=== PATIENT | male | born 1990 | race Caucasian/White ===

== ENCOUNTER 2016-08-06 04:38 | Inpatient (IN) | payer OTHER ==
[~2016-08-06] VITALS: Ht 177.8 cm; Wt 72.1 kg
[~2016-08-06 04:38] MED LIST: ADDE30CA PO; ALPR1TAB3 PO; GABA-282 PO; NAPR500T2 PO; ZYRT10TA2 PO
[2016-08-06 05:12] LABS: MEAN CORPUSCULAR HEMOGLOBIN 32.8 pg (27.0-33.0); MEAN CORPUSCULAR HGB CONC 35.7 g/dl (32.0-36.5); RED CELL DISTRIBUTION WIDTH 12.9 % (11.5-14.5); WHITE BLOOD COUNT 7.1 K/mm3 (4.0-10.0)
[2016-08-06 05:18] LABS: INR 1.02
[2016-08-06 05:45] LABS: ALBUMIN 4.1 GM/DL (3.2-5.2); ALKALINE PHOSPHATASE 72 U/L (45-117); ALT/SGPT 27 U/L (12-78); ANION GAP 9 MEQ/L (8-16); AST/SGOT 20 U/L (15-37); BILIRUBIN,DIRECT 0.1 MG/DL (0.0-0.2); BILIRUBIN,TOTAL 0.5 MG/DL (0.2-1.0); BLOOD UREA NITROGEN 9 MG/DL (7-18); CALCIUM LEVEL 8.1 MG/DL (8.5-10.1); CARBON DIOXIDE LEVEL 27 MEQ/L (21-32); CHLORIDE LEVEL 105 MEQ/L (98-107); CREATININE FOR GFR 0.74 MG/DL (0.70-1.30); GLOMERULAR FILTRATION RATE > 60.0 (>60); GLUCOSE, FASTING 98 MG/DL (70-105); POTASSIUM SERUM 3.6 MEQ/L (3.5-5.1); SODIUM LEVEL 141 MEQ/L (136-145); TOTAL PROTEIN 7.3 GM/DL (6.4-8.2)
[2016-08-06 05:46] LABS: ALBUMIN/GLOBULIN RATIO 1.28 (1.00-1.93)
[2016-08-06] MEDS ORDERED: D5W IV ONE ×4 (06:30→13:00)
[2016-08-06] MEDS ORDERED: ACETYLCYSTEINE IV ONE ×4 (06:30→13:00)
[2016-08-06] MEDS ORDERED: ONDANSETRON 4MG/2ML VIAL (J2405) IV ONE (07:45)
[2016-08-06] MEDS ORDERED: ACETYLCYSTEINE 0 MG in D5W 500 ML IV ONE (10:15)
[2016-08-06] MEDS ORDERED: ONDANSETRON 4MG/2ML VIAL (J2405) IV PRN (10:15)
[2016-08-06] MEDS ORDERED: ACETYLCYSTEINE 0 MG in D5W 1,000 ML IV ONE (10:15)
[2016-08-06] MEDS ORDERED: GLUCOSE 4 GM CHEW TABLET PO PRN (10:30)
[2016-08-06] MEDS ORDERED: GLUCAGON FOR INJ 1 MG VIAL (J1610) SC PRN (10:30)
[2016-08-06] MEDS ORDERED: DEXTROSE 50% 50 ML SYRINGE IV PRN (10:30)
[2016-08-06 10:45] LABS: METHADONE URINE NEGATIVE (NEGATIVE)
[2016-08-06 11:54] VITALS: BP 142/90
[2016-08-06 12:15] LABS: INR 1.09
[2016-08-06 12:23] LABS: ALBUMIN 3.8 GM/DL (3.2-5.2); ALBUMIN/GLOBULIN RATIO 1.36 (1.00-1.93); BILIRUBIN,DIRECT 0.2 MG/DL (0.0-0.2); BILIRUBIN,TOTAL 0.8 MG/DL (0.2-1.0); TOTAL PROTEIN 6.6 GM/DL (6.4-8.2)
--- NOTE | 2016-08-06 13:33 | HPEPDOC ---
General Date of Admission Aug 06, 2016 at 10:36 Chief Complaint The patient is a 26-year-old male admitted with a reason for visit of Intentional Acetaminophen Overdose. History of Present Illness Mr Mclaughlin is a 26 y/o male with past medical history of attention deficit d/o, anxiety and alcohol abuse who presents after this morning around 2-4 AM (timing unsure) ingesting 100+ Tylenol tablets in an attempt to harm himself, the patients mother is at bedside and she states that he phoned her around 3 am stating what he had done and she promptly called EMS. The patient is arousalable to verbal stimuli and will follow commands but seems grossly dis- interested in interacting with the HCP or following instructions nor answering questions. The mother states that her son has been experiencing a lot of personal life stressors, apparently he has had a DUI, had a restraining order placed against him so he can now longer see his son or ex-, and apparently the ex- works in our medical facility. The mother states he has never tried to harm himself in the past, and has no history of drug use aside from marijuana. He does have anxiety and some sort of attention disorder where he is very hyper the mother states, so he takes medications for this as well. He was also drinking alcohol late last night during this overdose and his mother states that he does drink 4-5x a week to excessive amounts resulting in intoxication, usually to self medicate due to his significant life stressors. Home Medications Scheduled Amphetamine/Dextroamphetamine (Adderall Xr 30 mg) 1 Cap Cap 1 CAP PO DAILY ( Reported) Allergies Coded Allergies: FRUIT (Verified Allergy, Unknown, 06/30/14) MELONS (Verified Allergy, Unknown, 06/30/14) Morphine (Verified Allergy, Unknown, 06/30/14) NUTS (Verified Allergy, Unknown, 06/30/14) VEGETABLES (Verified Allergy, Unknown, 06/30/14) Clindamycin (Verified Adverse Reaction, Unknown, N/V, 12/31/14) Past Medical History Medical History attention disorder anxiety alcohol abuse Family History Significant Family History: No pertinent family hx Social History * Smoker: Denies Alcohol: heavy Drugs: denies Review of Symptoms Constitutional: Reports: Other (ROS largely unobtainable, pt is certainly arousable to verbal stimuli however he seems irritated and not intersted in answering questions) Eyes: Denies: Pain Pulmonary: Denies: Cough, Dyspnea Cardiovascular: Denies: Chest Pain, Palpitations Other systems patient states that he is "Feeling fine" and wishes to go home. Denies being in pain of feeling nauseous. Physical Examination General Exam: Positive: Alert, No Acute Distress, Negative: Cooperative ENT Exam: Positive: Nares Patent, Tongue Midline Neck Exam: Positive: Supple Chest Exam: Positive: Clear to auscultation, Normal air movement, Negative: Rales, Rhonchi, Wheezing Heart Exam: Positive: Normal S1, Normal S2, Rate Normal, Negative: Bradycardic, Tachycardic Telemetry: Positive: No significant arrhythmia Abdomen Exam: Positive: Normal bowel sounds, Soft, Negative: BS Hyperactive, BS Hypoactive, Hepatospenomegaly, Tenderness Extremity Exam: Negative: Cyanosis, Edema Vital Signs Vital Signs Date Time Temp Pulse Resp B/P Pulse Ox O2 Delivery O2 Flow Rate FiO2 08/06/16 11:54 97.2 66 18 142/90 98 Room Air Laboratory Data Labs 24H Laboratory Tests 2 08/06/16 05:01: Acetaminophen Level 105.3H, Activated Partial Thromboplast Time 28.7, Aspartate Amino Transf (AST/SGOT) 20, Alanine Aminotransferase (ALT/SGPT) 27, Alkaline Phosphatase 72, Total Bilirubin 0.5, Direct Bilirubin 0.1, Albumin 4.1, Albumin/ Globulin Ratio 1.28, Anion Gap 9, Calcium Level 8.1L, Ethyl Alcohol Level 0.140H , Glomerular Filtration Rate > 60.0, Prothromb Time International Ratio 1.02, Prothrombin Time 13.5, Salicylates Level < 1.7L, Thyroid Stimulating Hormone ( TSH) 0.472, Total Protein 7.3 08/06/16 08:52: Acetaminophen Level 85.3H 08/06/16 10:20: Urine Amphetamines Screen POSITIVEH, Urine Benzodiazepines Screen NEGATIVE, Urine Opiates Screen NEGATIVE, Urine Barbiturates Screen NEGATIVE, Urine Cannabinoids Screen POSITIVEH, Urine Cocaine Metabolite Screen NEGATIVE, Urine Methadone Screen NEGATIVE, Urine Phencyclidine Screen NEGATIVE 08/06/16 11:52: Acetaminophen Level 51.4H, Aspartate Amino Transf (AST/SGOT) 19, Alanine Aminotransferase (ALT/SGPT) 25, Alkaline Phosphatase 56, Total Bilirubin 0.8#, Direct Bilirubin 0.2, Albumin 3.8, Albumin/Globulin Ratio 1.36, Prothromb Time International Ratio 1.09, Prothrombin Time 14.2, Total Protein 6.6 CBC/BMP Laboratory Tests 08/06/16 05:01 Red Blood Count 4.63, Mean Corpuscular Volume 92.0, Mean Corpuscular Hemoglobin 32.8, Mean Corpuscular Hemoglobin Concent 35.7, Red Cell Distribution Width 12.9 Problems (1) Intentional acetaminophen overdose Status: Acute Response to Treatment: Stable Problem Text: AST/ALT acetaminophen level on presentation was 105.3 repeat level 51.4 Explained to mother at bedside that we will continue to evaluate patients liver function for the next three days and trend to monitor the effects that the acute ingestion may have had on his liver. bilirubin levels normal currently will cx psych for involuntary inpt admission once medically stabilized will continue to monitor (2) Alcohol withdrawal Status: Acute Response to Treatment: Stable Problem Text: pt does not seem to be in active w/d, comfortable in bed resting will schedule multivitamin, thiamine and folic acid serax can be scheduled PRN once the patients liver function is deemed within normal limits, we will monitor for alcohol w.d. for now (3) Anxiety Status: Chronic Response to Treatment: Stable Problem Text: hold home medications now, will continue to evaluate liver function and monitor for signs of anxiety (4) Attention deficit Status: Chronic Response to Treatment: Stable Problem Text: continue to monitor for now due to uncertainty of liver function we will continue to evaluate and hold home meds. (5) DVT prophylaxis Status: Chronic Response to Treatment: Stable Problem Text: SCD TEDS Plan / VTE VTE Prophylaxis Ordered?: Yes GME ATTESTATION GME ATTESTATION My preceptor for this patient encounter was physically present in the building during the encounter and was fully available. As needed, all aspects of the patient interview, examination, medical decision making process, and medical care plan development were reviewed and approved by the preceptor. Preceptor is aware and concurs with the plan as stated in the body of this note and will attest to such by his/her cosignature. JUANCARLOS MURRAY DO Aug 06, 2016 13:33
[2016-08-06 14:00] VITALS: BP 142/90
[2016-08-06] MEDS: HEPARIN SOD (PORCINE) 5000 UNITS/ML VIAL SC SCH ×2 (14:00→21:02)
[2016-08-06 15:27] VITALS: BP 137/63
[2016-08-06] MEDS: THIAMINE 100 MG TAB PO SCH (15:39)
[2016-08-06] MEDS: FOLIC ACID 1 MG TAB PO SCH (15:39)
[2016-08-06] MEDS: PANTOPRAZOLE 40MG INJ (PROTONIX) (C9113) IV SCH (15:40)
[2016-08-06 16:30] LABS: INR 1.08
[2016-08-06 16:45] LABS: ALBUMIN 3.7 GM/DL (3.2-5.2); ALBUMIN/GLOBULIN RATIO 1.23 (1.00-1.93); BILIRUBIN,DIRECT 0.2 MG/DL (0.0-0.2); BILIRUBIN,TOTAL 0.9 MG/DL (0.2-1.0); TOTAL PROTEIN 6.7 GM/DL (6.4-8.2)
[2016-08-06 18:00] VITALS: BP 132/72
[2016-08-06 20:00] VITALS: BP 142/76
[2016-08-06 20:16] LABS: INR 1.15
[2016-08-06 20:32] LABS: ALBUMIN 3.6 GM/DL (3.2-5.2); ALBUMIN/GLOBULIN RATIO 1.29 (1.00-1.93); BILIRUBIN,DIRECT 0.2 MG/DL (0.0-0.2); BILIRUBIN,TOTAL 0.7 MG/DL (0.2-1.0); TOTAL PROTEIN 6.4 GM/DL (6.4-8.2)
[2016-08-06 23:59] VITALS: BP 129/94
[2016-08-07] VITALS (10 sets, daily range): BP systolic 114–134; BP diastolic 53–94
[2016-08-07 00:29] LABS: INR 1.14
[2016-08-07 01:06] LABS: ALBUMIN 3.6 GM/DL (3.2-5.2); ALBUMIN/GLOBULIN RATIO 1.29 (1.00-1.93); BILIRUBIN,DIRECT 0.2 MG/DL (0.0-0.2); BILIRUBIN,TOTAL 0.7 MG/DL (0.2-1.0); TOTAL PROTEIN 6.4 GM/DL (6.4-8.2)
[2016-08-07 04:37] LABS: MEAN CORPUSCULAR HEMOGLOBIN 29.8 pg (27.0-33.0); MEAN CORPUSCULAR HGB CONC 32.6 g/dl (32.0-36.5); MEAN CORPUSCULAR VOLUME 91.6 fl (80.0-96.0); WHITE BLOOD COUNT 5.9 K/mm3 (4.0-10.0)
[2016-08-07 04:59] LABS: INR 1.17
[2016-08-07] MEDS: HEPARIN SOD (PORCINE) 5000 UNITS/ML VIAL SC SCH ×3 (05:03→21:04)
[2016-08-07 05:06] LABS: ALBUMIN 3.6 GM/DL (3.2-5.2); ALBUMIN/GLOBULIN RATIO 1.33 (1.00-1.93); ALKALINE PHOSPHATASE 52 U/L (45-117); ALT/SGPT 23 U/L (12-78); ANION GAP 10 MEQ/L (8-16); AST/SGOT 15 U/L (15-37); BILIRUBIN,DIRECT 0.3 MG/DL (0.0-0.2); BLOOD UREA NITROGEN 9 MG/DL (7-18); CALCIUM LEVEL 8.2 MG/DL (8.5-10.1); CARBON DIOXIDE LEVEL 26 MEQ/L (21-32); CHLORIDE LEVEL 105 MEQ/L (98-107); CREATININE FOR GFR 0.75 MG/DL (0.70-1.30); GLOMERULAR FILTRATION RATE > 60.0 (>60); GLUCOSE, FASTING 94 MG/DL (70-105); POTASSIUM SERUM 3.9 MEQ/L (3.5-5.1); SODIUM LEVEL 141 MEQ/L (136-145); TOTAL PROTEIN 6.3 GM/DL (6.4-8.2)
[2016-08-07] MEDS: SLF 3 ML SYR IV SCH ×3 (06:00→21:06)
[2016-08-07] MEDS ORDERED: SLF 3 ML SYR IV PRN (06:00)
[2016-08-07 08:35] LABS: INR 1.11
[2016-08-07 08:44] LABS: ALBUMIN 3.6 GM/DL (3.2-5.2); ALBUMIN/GLOBULIN RATIO 1.33 (1.00-1.93); BILIRUBIN,DIRECT 0.2 MG/DL (0.0-0.2); BILIRUBIN,TOTAL 1.1 MG/DL (0.2-1.0); TOTAL PROTEIN 6.3 GM/DL (6.4-8.2)
[2016-08-07] MEDS: THIAMINE 100 MG TAB PO SCH (09:46)
[2016-08-07] MEDS: FOLIC ACID 1 MG TAB PO SCH (09:46)
[2016-08-07] MEDS: PANTOPRAZOLE 40MG INJ (PROTONIX) (C9113) IV SCH (11:01)
[2016-08-07 12:34] LABS: ALBUMIN 3.6 GM/DL (3.2-5.2); ALBUMIN/GLOBULIN RATIO 1.38 (1.00-1.93); ALKALINE PHOSPHATASE 51 U/L (45-117); ALT/SGPT 23 U/L (12-78); AST/SGOT 16 U/L (15-37); BILIRUBIN,DIRECT 0.2 MG/DL (0.0-0.2); TOTAL PROTEIN 6.2 GM/DL (6.4-8.2)
[2016-08-07 12:43] LABS: INR 1.11
[2016-08-07 16:15] LABS: INR 1.08
[2016-08-07 16:29] LABS: ALBUMIN 3.9 GM/DL (3.2-5.2); ALBUMIN/GLOBULIN RATIO 1.56 (1.00-1.93); ALKALINE PHOSPHATASE 58 U/L (45-117); ALT/SGPT 24 U/L (12-78); AST/SGOT 17 U/L (15-37); BILIRUBIN,DIRECT 0.2 MG/DL (0.0-0.2); BILIRUBIN,TOTAL 0.7 MG/DL (0.2-1.0); TOTAL PROTEIN 6.4 GM/DL (6.4-8.2)
--- NOTE | 2016-08-07 17:08 | IPN ---
DATE: 08/07/2016 Patient seen and examined. No acute events overnight. Patient denies any bleeding, chest pain, pressure or discomfort. Denies any abdominal pain. VITAL SIGNS: Temperature 97.7, pulse 63, respirations 19, blood pressure 133/73, pulse oximetry 99% on room air. LABORATORY DATA: WBC 5.9, hemoglobin and hematocrit 13.8/42.5, platelets 225. Chemistry: Sodium 141, potassium 3.9, chloride 105, bicarbonate 26, BUN 9, creatinine 0.75. AST, ALT, alkaline phosphatase within normal limits. INR 1.08. PHYSICAL EXAMINATION: GENERAL: Patient alert and oriented times three, in no acute distress. HEENT: Normocephalic, atraumatic. PULMONARY: Bilaterally clear to auscultation. ABDOMEN: Soft, nontender, nondistended. Positive bowel sounds. EXTREMITIES: No edema bilateral lower extremities. ASSESSMENT AND PLAN: This is a 26-year-old male patient with underlying medical history of attention deficit hyperactivity disorder (ADHD), anxiety, alcohol abuse, presented after intentionally ingesting Tylenol. 1. Suicide attempt with intention of acetaminophen overdose. Poison Control was contacted. Followup liver function tests, INR, acetaminophen level. Patient completed acetylcysteine protocol. Will consult psychiatry tomorrow if patient remains stable. 2. Alcohol withdrawal. Patient is currently having no signs of withdrawal at this moment. Continue multivitamin, folic acid, thiamine. Serax as needed. Monitor for withdrawal. 3. Anxiety. Hold home medication for now, will restart when liver function is at baseline. 4. Attention deficit hyperactivity disorder (ADHD). Continue to monitor. Will consult psychiatry. Holding medication. 5. Deep venous thrombosis (DVT) prophylaxis. Heparin subcutaneous. DISPOSITION PLANNING: Pending clinical improvement. Likely consult psychiatry for possible admission to inpatient mental health.
[2016-08-07] MEDS ORDERED: LORazepam 2 MG TAB PO PRN (20:00)
[2016-08-07 20:28] LABS: INR 1.04
[2016-08-07 20:54] LABS: ALBUMIN 3.8 GM/DL (3.2-5.2); ALBUMIN/GLOBULIN RATIO 1.46 (1.00-1.93); BILIRUBIN,DIRECT 0.1 MG/DL (0.0-0.2); BILIRUBIN,TOTAL 0.6 MG/DL (0.2-1.0); TOTAL PROTEIN 6.4 GM/DL (6.4-8.2)
[2016-08-08 00:20] VITALS: BP 130/73
[2016-08-08 04:00] VITALS: BP 113/59
[2016-08-08 04:35] VITALS: BP_SYST 113; BP_SYST 130; BP_DIAS 59; BP_DIAS 73
[2016-08-08 05:40] LABS: MEAN CORPUSCULAR HEMOGLOBIN 30.5 pg (27.0-33.0); MEAN CORPUSCULAR HGB CONC 32.4 g/dl (32.0-36.5); RED CELL DISTRIBUTION WIDTH 12.8 % (11.5-14.5); WHITE BLOOD COUNT 5.8 K/mm3 (4.0-10.0)
[2016-08-08] MEDS: SLF 3 ML SYR IV SCH ×2 (06:00→13:33)
[2016-08-08] MEDS: HEPARIN SOD (PORCINE) 5000 UNITS/ML VIAL SC SCH ×2 (06:00→13:33)
[2016-08-08 06:06] LABS: ALBUMIN 3.5 GM/DL (3.2-5.2); ALBUMIN/GLOBULIN RATIO 1.17 (1.00-1.93); ALKALINE PHOSPHATASE 71 U/L (45-117); ALT/SGPT 22 U/L (12-78); ANION GAP 7 MEQ/L (8-16); AST/SGOT 12 U/L (15-37); BILIRUBIN,TOTAL 0.5 MG/DL (0.2-1.0); BLOOD UREA NITROGEN 12 MG/DL (7-18); CALCIUM LEVEL 8.1 MG/DL (8.5-10.1); CARBON DIOXIDE LEVEL 28 MEQ/L (21-32); CHLORIDE LEVEL 106 MEQ/L (98-107); CREATININE FOR GFR 0.69 MG/DL (0.70-1.30); GLOMERULAR FILTRATION RATE > 60.0 (>60); GLUCOSE, FASTING 96 MG/DL (70-105); POTASSIUM SERUM 3.7 MEQ/L (3.5-5.1); SODIUM LEVEL 141 MEQ/L (136-145); TOTAL PROTEIN 6.5 GM/DL (6.4-8.2)
[2016-08-08 08:00] VITALS: BP 115/67
[2016-08-08] MEDS ORDERED: MULTIVITAMINS/MINERALS THERAP 1 TAB PO SCH (09:00)
[2016-08-08] MEDS: FOLIC ACID 1 MG TAB PO SCH (09:31)
[2016-08-08] MEDS: THIAMINE 100 MG TAB PO SCH (09:31)
[2016-08-08] MEDS: PANTOPRAZOLE 40MG INJ (PROTONIX) (C9113) IV SCH (09:45)
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
[2016-08-08 14:05] VITALS: BP 127/64
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
== END 2016-08-08 16:05 | DRG 812 ==
LOC: EDBD 04:38 → M ED 09:27 → M ED INP 10:36 → M PCU 11:20 → M MSPAV 08-08 14:05
PROVIDERS: ADMIT General Practice; ATTEND Hospitalist
DX: T39.1X2A Poisoning by 4-Aminophenol derivatives, intentional self-harm, initial encounter (principal); F41.9 Anxiety disorder, unspecified; F90.9 Attention-deficit hyperactivity disorder, unspecified type; F10.20 Alcohol dependence, uncomplicated; Z79.899 Other long term (current) drug therapy; Z91.018 Allergy to other foods; Z88.5 Allergy status to narcotic agent; Z88.1 Allergy status to other antibiotic agents; Z81.8 Family history of other mental and behavioral disorders; Z81.3 Family history of other psychoactive substance abuse and dependence; F12.10 Cannabis abuse, uncomplicated; F60.3 Borderline personality disorder; F60.2 Antisocial personality disorder; F63.9 Impulse disorder, unspecified; Z63.5 Disruption of family by separation and divorce; Z65.3 Problems related to other legal circumstances

== ENCOUNTER → 2016-11-05 | Outpatient (CLI) | payer MEDICAID ==
[~2016-11-05] MED LIST changes: -ADDE30CA PO; +ADDE30CA3 PO; -NAPR500T2 PO; +NAPR500T3 PO
== END ==
LOC: M OUTALCOH 08:47
PROVIDERS: ATTEND Psychiatry & Neurology Psychiatry
DX: F10.20 Alcohol dependence, uncomplicated (principal)

== ENCOUNTER → 2016-11-12 | Outpatient (RCR) | payer MEDICAID | LOC: M OUTALCOH 13:55 | PROVIDERS: ATTEND Psychiatry & Neurology Psychiatry | DX: F10.20 Alcohol dependence, uncomplicated (principal); F17.200 Nicotine dependence, unspecified, uncomplicated ==

== ENCOUNTER 2016-12-12 08:45 | Outpatient (RCR) | payer MEDICAID | END 2016-12-13 | LOC: M OUTALCOH 08:45 | PROVIDERS: ATTEND Psychiatry & Neurology Psychiatry | DX: F10.20 Alcohol dependence, uncomplicated (principal); F17.200 Nicotine dependence, unspecified, uncomplicated ==

== ENCOUNTER 2017-01-09 08:45 | Outpatient (RCR) | payer MEDICAID | END 2017-01-12 | LOC: M OUTALCOH 08:45 | PROVIDERS: ATTEND Psychiatry & Neurology Psychiatry | DX: F10.20 Alcohol dependence, uncomplicated (principal); F17.200 Nicotine dependence, unspecified, uncomplicated ==

== ENCOUNTER 2017-03-01 15:00 | Outpatient (RCR) | payer MEDICAID | END 2017-03-14 | LOC: M OUTALCOH 15:00 | PROVIDERS: ATTEND Psychiatry & Neurology Psychiatry | DX: F10.20 Alcohol dependence, uncomplicated (principal); F17.200 Nicotine dependence, unspecified, uncomplicated ==

== ENCOUNTER 2017-11-29 13:29 | Emergency (ER) | payer OTHER, MEDICAID ==
[2017-11-29] MEDS: DERMABOND TOPICAL SKIN ADHESIVE TOP (14:37)
== END 2017-11-29 14:59 | disposition home or self-care (01) ==
LOC: M ED 13:29
DX: S61.214A Laceration without foreign body of right ring finger without damage to nail, initial encounter (principal); X15.0XXA Contact with hot stove (kitchen), initial encounter; Y92.009 Unspecified place in unspecified non-institutional (private) residence as the place of occurrence of the external cause; F90.9 Attention-deficit hyperactivity disorder, unspecified type
CPT/HCPCS: 99282

== ENCOUNTER → 2018-02-18 | Outpatient (CLI) | payer OTHER ==
[2018-02-19 10:16] LABS: CONTROL LINE MONO INT CTR LINE PRESENT; MONO SCRN NEGATIVE (NEGATIVE)
== END ==
LOC: M LAB 17:47
DX: R53.83 Other fatigue (principal)
CPT/HCPCS: 76705

== ENCOUNTER 2018-06-18 20:31 | Emergency (ER) | payer OTHER ==
[~2018-06-18] VITALS: Ht 190.5 cm; Wt 75.0 kg
[~2018-06-18 20:31] MED LIST changes: -GABA-282 PO; +GABA-843 PO; +NAPR-885 PO; -NAPR500T3 PO; +ZYRT10CA5 PO; -ZYRT10TA2 PO
[2018-06-18] MEDS ORDERED: ADDE30CA3 PO (21:12)
[2018-06-18] MEDS ORDERED: KETOROLAC TROMETHAMINE 10 MG TAB PO ONE (22:00)
[2018-06-18] MEDS ORDERED: KETO10TAB PO (22:21)
[2018-06-18 22:25] VITALS: BP 137/82
--- NOTE | 2018-06-19 01:53 | REP ---
Clinical: Pain and crepitus with recent injury . Technique: Internal rotation, external rotation, and Y view. Findings: No acute fracture or dislocation. The acromioclavicular and glenohumeral joints are intact. No periarticular calcifications or degenerative changes are appreciated. Sub acromial space is normal. Surrounding soft tissues are unremarkable. Impression: Normal left shoulder radiographs. Electronically Signed by Gallo De Oliveira MD 06/19/2018 01:45 A
== END 2018-06-18 22:30 | disposition home or self-care (01) ==
LOC: M ED 20:31
DX: S46.912A Strain of unspecified muscle, fascia and tendon at shoulder and upper arm level, left arm, initial encounter (principal); X50.9XXA Other and unspecified overexertion or strenuous movements or postures, initial encounter; Y92.89 Other specified places as the place of occurrence of the external cause; F90.9 Attention-deficit hyperactivity disorder, unspecified type; Z79.899 Other long term (current) drug therapy; Z88.1 Allergy status to other antibiotic agents; Z88.5 Allergy status to narcotic agent; Z91.018 Allergy to other foods; F17.210 Nicotine dependence, cigarettes, uncomplicated

== ENCOUNTER 2018-09-18 07:52 | Emergency (ER) | payer OTHER ==
[~2018-09-18] VITALS: Ht 190.5 cm; Wt 77.2 kg
[~2018-09-18 07:52] MED LIST changes: +KETO10TAB PO
[2018-09-18 07:53] VITALS: BP 152/91
[2018-09-18] MEDS ORDERED: AUGM875T28 PO (08:23)
== END 2018-09-18 08:43 | disposition home or self-care (01) ==
LOC: M ED 07:52
DX: S71.152A Open bite, left thigh, initial encounter (principal); W54.0XXA Bitten by dog, initial encounter; Y92.410 Unspecified street and highway as the place of occurrence of the external cause; Y93.89 Activity, other specified; Y99.9 Unspecified external cause status; Z72.0 Tobacco use; Z79.899 Other long term (current) drug therapy; Z88.1 Allergy status to other antibiotic agents; Z88.5 Allergy status to narcotic agent; Z91.010 Allergy to peanuts; Z91.018 Allergy to other foods

== ENCOUNTER → 2019-04-14 | Outpatient (CLI) | payer OTHER ==
[~2019-04-14] MED LIST changes: +AUGM875T28 PO; +CIPR0.3S OD; +ERYT1OIN26 OD
[2019-04-14 07:50] LABS: HEMATOCRIT 47.1 % (42.0-52.0); HEMOGLOBIN 15.3 g/dl (13.5-17.5); MEAN CORPUSCULAR HEMOGLOBIN 29.8 pg (27.0-33.0); MEAN CORPUSCULAR HGB CONC 32.5 g/dl (32.0-36.5); MEAN CORPUSCULAR VOLUME 91.8 fl (80.0-96.0); PLATELET COUNT, AUTOMATED 289 10^3/uL (150-450); RED BLOOD COUNT 5.13 10^6/uL (4.30-6.10); WHITE BLOOD COUNT 6.8 10^3/uL (4.0-10.0)
--- NOTE | 2019-04-14 08:12 | REP ---
Clinical: Chest pain and left clavicular mass . Comparison: 01/18/2005 . Technique: PA and lateral. Findings: The mediastinum and cardiac silhouette are normal. The lung duckworth are clear and without acute consolidation, effusion, or pneumothorax. The skeletal structures are intact and normal. No obvious mass lesion appreciated. Impression: 1. No acute cardiopulmonary process. Electronically Signed by Gallo De Oliveira MD 04/14/2019 08:04 A
[2019-04-14 08:16] LABS: ALBUMIN 4.4 GM/DL (3.2-5.2); ALT/SGPT 23 U/L (12-78); BILIRUBIN,TOTAL 0.7 MG/DL (0.2-1.0); BLOOD UREA NITROGEN 12 MG/DL (7-18); CALCIUM LEVEL 9.3 MG/DL (8.5-10.1); CARBON DIOXIDE LEVEL 30 MEQ/L (21-32); CHLORIDE LEVEL 106 MEQ/L (98-107); CHOLESTEROL LEVEL 238 MG/DL (<200); CHOLESTEROL RISK RATIO 3.966 (<5); CREATININE FOR GFR 1.06 MG/DL (0.70-1.30); GLOMERULAR FILTRATION RATE > 60.0 (>60); GLUCOSE, FASTING 89 MG/DL (70-100); HDL CHOLESTEROL 60 MG/DL (>40); LDL CHOLESTEROL 153 MG/DL (<100); NON-HDL-C 178 MG/DL; POTASSIUM SERUM 4.6 MEQ/L (3.5-5.1); SODIUM LEVEL 143 MEQ/L (136-145); THYROID STIMULATING HORMONE 0.974 uIU/ML (0.358-3.740); TOTAL PROTEIN 7.4 GM/DL (6.4-8.2); TRIGLYCERIDES LEVEL 124 MG/DL (<150)
[2019-04-14 08:18] LABS: HEMOGLOBIN A1c 5.5 %
[2019-04-14 10:23] LABS: TOTAL 25(OH) VITAMIN D 33.8 NG/ML (30.0-100.0)
--- NOTE | 2019-04-16 07:29 | ECGEPIP ---
[facility] Test Date: 2019-04-14 Pat Name: MICHELA CHURCH Department: Room: - Gender: Male Acetylene Torch Operator: MARY : 1990 Requested By: Francis Carrera Order Number: [id number] Reading MD: Aris Sinha Measurements Intervals [place] Rate: 63 P: 51 NC: 136 QRS: 54 QRSD: 86 T: 50 QT: 378 QTc: 387 Interpretive Statements Normal sinus rhythm Early repolarization T wave peaking is evident suggesting possible hyperkalemia No significant change when compared to prior tracing of 08/06/2016 Electronically Signed on 04-16-2019 7:29:00 EST by Aris Sinha
== END ==
LOC: M LAB 07:21
PROVIDERS: ATTEND Family Medicine
DX: D64.9 Anemia, unspecified (principal); R53.83 Other fatigue

== ENCOUNTER → 2019-04-28 | Outpatient (REF) | payer OTHER, MEDICAID ==
[2019-04-28 20:43] LABS: INFLUENZA A AMPLIFICATION POSITIVE (NEGATIVE); INFLUENZA B AMPLIFICATION NEGATIVE (NEGATIVE)
== END ==
LOC: M LAB REF 18:47
PROVIDERS: ATTEND Physician Assistant Medical
DX: R50.9 Fever, unspecified (principal)

== ENCOUNTER → 2019-05-01 | Outpatient (CLI) | payer MEDICAID | LOC: M OUTALCOH 09:01 | PROVIDERS: ATTEND Psychiatry & Neurology Addiction Medicine | DX: Z03.89 Encounter for observation for other suspected diseases and conditions ruled out (principal) ==

== ENCOUNTER 2019-05-11 15:34 | Outpatient (RCR) | payer MEDICAID | END 2019-05-15 | LOC: M OUTALCOH 15:34 | PROVIDERS: ATTEND Psychiatry & Neurology Addiction Medicine | DX: F17.290 Nicotine dependence, other tobacco product, uncomplicated (principal) ==

== ENCOUNTER → 2019-05-26 | Outpatient (REF) | payer OTHER | LOC: M LAB REF 13:22 | PROVIDERS: ATTEND Surgery | DX: D17.1 Benign lipomatous neoplasm of skin and subcutaneous tissue of trunk (principal) ==

== ENCOUNTER 2019-06-28 10:19 | Emergency (ER) | payer MEDICAID, OTHER ==
[~2019-06-28] VITALS: Ht 188 cm; Wt 81.7 kg
[2019-06-28] MEDS ORDERED: ACETAMINOPHEN 325 MG TAB PO ONE (11:15)
[2019-06-28] MEDS ORDERED: KETOROLAC 60 MG/2 ML VIAL (J1885) IM ONE (11:15)
[2019-06-28] MEDS ORDERED: diazePAM 5 MG TAB PO ONE (11:15)
[2019-06-28 11:27] LABS: BASO # 0.1 10^3/uL (0.0-0.2); BASO % 1.5 % (0.0-1.0); EOS # 0.1 10^3/uL (0.0-0.5); EOS % 2.4 % (0.0-3.0); HEMATOCRIT 44.9 % (42.0-52.0); HEMOGLOBIN 14.9 g/dl (13.5-17.5); LYMPH # 1.9 10^3/uL (1.5-5.0); LYMPH % 35.6 % (24.0-44.0); MEAN CORPUSCULAR HGB CONC 33.2 g/dl (32.0-36.5); MEAN CORPUSCULAR VOLUME 90.3 fl (80.0-96.0); MONO # 0.5 10^3/uL (0.0-0.8); MONO % 8.9 % (0.0-5.0); NEUTROPHILS # 2.8 10^3/uL (1.5-8.5); NEUTROPHILS % 51.4 % (36.0-66.0); PLATELET COUNT, AUTOMATED 303 10^3/uL (150-450); RED BLOOD COUNT 4.97 10^6/uL (4.30-6.10); WHITE BLOOD COUNT 5.4 10^3/uL (4.0-10.0)
[2019-06-28 11:57] LABS: ERYTHROCYTE SEDIMENTATION RATE 1 mm/hr (0-15)
[2019-06-28] MEDS ORDERED: GABAPENTIN 300 MG CAP PO ONE (13:30)
[2019-06-28] MEDS ORDERED: LIDOCAINE 5% (LIDODERM) PATCH TD ONE (14:15)
[2019-06-28] MEDS ORDERED: DIAZ5TAB PO (14:21)
[2019-06-28] MEDS ORDERED: GABA-843 PO (14:21)
[2019-06-28] MEDS ORDERED: METH4PACK PO (14:21)
[2019-06-28] MEDS ORDERED: KETO10TAB PO (14:21)
[2019-06-28 14:29] VITALS: BP 143/68
[2019-06-28] MEDS ORDERED: **NOTE PATIENT COMMENT** MISC XX SCH (21:00)
--- NOTE | 2019-06-29 07:37 | REP ---
REASON FOR EXAM: Back pain and radicular symptoms. PRIORS: None. CT cannot rule out an acute disc extrusion. Vertebral body height and alignment is within normal limits. The disc spaces are symmetric and relatively well maintained with minimal posterior disc space narrowing seen at L3-4 and L5-S1. There is no bony cause of foraminal narrowing or central canal stenosis. Minimal broad-based annular bulges may be present at L3-4 through L5-S1 but presumptively seen in a markedly limited fashion since the examination is CT rather than MRI. There is no evidence of significant facet joint arthropathy. The imaged portion of the sacroiliac portion is found to be within normal limits. IMPRESSION: Possible broad-based annular bulges as described above. CT cannot rule out a disc extrusion. An MRI would be necessary. MRI also better evaluates the annulus to search for an annular rent and/or an annular bulge. Electronically Signed by Kelvin Chaparro DO 06/29/2019 01:28 P
--- NOTE | 2019-06-30 12:09 | ED PDOC ---
Post-Departure Follow-Up emily granger and ruth faxed formal report of ct ls spine for fu Corey Benoit MD Jun 30, 2019 12:09
== END 2019-06-28 14:30 | disposition home or self-care (01) ==
LOC: M ED 10:19
DX: M54.5 Low back pain (principal); Z79.899 Other long term (current) drug therapy; Z88.1 Allergy status to other antibiotic agents; Z88.5 Allergy status to narcotic agent; Z91.018 Allergy to other foods
CPT/HCPCS: 36415; 72131; 80047; 85025; 85652; 86140; 96372; 99283; J1885

== ENCOUNTER → 2021-07-12 | Outpatient (CLI) | payer OTHER, MEDICAID ==
[~2021-07-12] MED LIST changes: -CIPR0.3S OD; +CIPR0.3S6 OD; +DIAZ5TAB PO; -ERYT1OIN26 OD; +ERYT5OIN25 OD; +GABA-282 PO; -GABA-843 PO; +METH4PACK PO
[2021-07-12 09:12] LABS: HEMATOCRIT 41.8 % (42.0-52.0); HEMOGLOBIN 14.2 g/dl (13.5-17.5); MEAN CORPUSCULAR VOLUME 88.2 fl (80.0-96.0); PLATELET COUNT, AUTOMATED 292 10^3/uL (150-450); RED BLOOD COUNT 4.74 10^6/uL (4.30-6.10); WHITE BLOOD COUNT 7.2 10^3/uL (4.0-10.0)
[2021-07-12 09:40] LABS: ALBUMIN 4.3 GM/DL (3.2-5.2); ALT/SGPT 24 U/L (12-78); BILIRUBIN,TOTAL 0.5 MG/DL (0.2-1.0); BLOOD UREA NITROGEN 13 MG/DL (7-18); CALCIUM LEVEL 9.4 MG/DL (8.5-10.1); CARBON DIOXIDE LEVEL 29 MEQ/L (21-32); CHLORIDE LEVEL 105 MEQ/L (98-107); CHOLESTEROL LEVEL 216 MG/DL (<200); CHOLESTEROL RISK RATIO 3.323 (<5); CREATININE FOR GFR 0.97 MG/DL (0.70-1.30); GLOMERULAR FILTRATION RATE > 60.0 (>60); GLUCOSE, FASTING 102 MG/DL (70-100); HDL CHOLESTEROL 65 MG/DL (>40); LDL CHOLESTEROL 130 MG/DL (<100); NON-HDL-C 151 MG/DL; POTASSIUM SERUM 3.8 MEQ/L (3.5-5.1); SODIUM LEVEL 140 MEQ/L (136-145); TRIGLYCERIDES LEVEL 103 MG/DL (<150)
[2021-07-12 09:42] LABS: TESTOSTERONE 572 NG/DL (241-827); TOTAL 25(OH) VITAMIN D 14.9 NG/ML (30.0-100.0)
[2021-07-12 10:19] LABS: HEMOGLOBIN A1c 5.4 %
== END ==
LOC: M LAB 08:23
PROVIDERS: ATTEND Family Medicine
DX: D64.9 Anemia, unspecified (principal); R53.83 Other fatigue